=== PATIENT | female | born 1930 | race Caucasian/White ===

== ENCOUNTER 2020-02-04 10:48 | Inpatient (IN) | payer MEDICARE, OTHER ==
[~2020-02-04] VITALS: Ht 167.6 cm; Wt 57.4 kg
[~2020-02-04 10:48] MED LIST: ANAS1TAB7 PO; LEVO88TA36 PO; LISI40TA11 PO; PROP60CA34 PO; SIMV-13 PO
[2020-02-04] MEDS ORDERED: cefTRIAXone 1GM/50ML D5W 50 ML IV ONE (11:45)
[2020-02-04] MEDS ORDERED: SODIUM CHLORIDE 0.9% 1,000 ML IV ONE (11:45)
[2020-02-04 12:43] LABS: Basophils # (auto) 0 10 ^3/uL (0-0.2); Basophils % (auto) 0.4 % (0.0-2.0); Hemoglobin 11.1 g/dL (12.2-16.2); Monocytes # (auto) 0.7 10 ^3/uL (0-1.3); Neutrophils # (auto) 8.4 10 ^3/uL (1.6-8.6)
[2020-02-04 12:46] LABS: Eosinophils # (auto) 0.2 10 ^3/uL (0-0.8); Eosinophils % (auto) 1.7 % (0.0-7.0); Hematocrit 33.5 % (36.0-46.0); Lymphocytes # (auto) 0.9 10 ^3/uL (0.4-5.4); Lymphocytes % (auto) 8.4 % (10.0-50.0); Mean Corpuscular Hemoglobin 27.5 pg (28.0-32.0); Mean Corpuscular Hgb Conc. 33.1 g/dL (32.0-36.0); Mean Corpuscular Volume 83.3 fL (80.0-100.0); Monocytes % (auto) 7.1 % (0.0-12.0); Neutrophils % (auto) 82.4 % (37.0-80.0); Platelet Count (auto) 481 10^3/uL (140-450); Red Blood Cells 4.02 10^6/uL (4.0-5.20); Red Cell Distribution Width 15.2 % (11.8-14.3); White Blood Cell 10.2 10^3/uL (4.4-10.8)
[2020-02-04 12:59] LABS: INR 1.02 (0.9-1.15); Partial Thromboplastin Time 29.3 sec (23.0-31.2)
[2020-02-04 13:32] LABS: Albumin 3.3 g/dL (3.4-5.0); Anion Gap 6 (5-15); Blood Urea Nitrogen 15 mg/dL (7-18); Carbon Dioxide 27 mmol/L (21-32); Chloride 105 mmol/L (98-107); Glucose 80 mg/dL (74-106); Potassium 3.6 mmol/L (3.5-5.1); Sodium 138 mmol/L (136-145)
[2020-02-04 13:39] LABS: Alanine Aminotransferase 12 U/L (13-56); Alkaline Phosphatase 89 U/L (45-117); Aspartate Aminotransferase 12 U/L (15-37); BUN/Creatinine Ratio 26.3; Bilirubin, Total 0.6 mg/dL (0.2-1.0); GFR African American 129 mL/min; GFR Non-African American 107 mL/min; Total Protein 7.8 g/dL (6.4-8.2)
[2020-02-04] MEDS ORDERED: MORPHINE SULF INJ 2 MG/ML SYRINGE 1ML IV PRN (17:45)
[2020-02-04] MEDS ORDERED: NITROGLYCERIN 0.4 MG SL TAB SL PRN (17:45)
[2020-02-04] MEDS ORDERED: ONDANSETRON HCL 4 MG/2 ML VIAL IV PRN (17:45)
[2020-02-04] MEDS ORDERED: PIPERACILLIN-TAZOB 3.375GM 100 ML IV SCH (18:00)
[2020-02-04] MEDS: SODIUM CHLORIDE 0.9% 1,000 ML IV SCH (19:35)
[2020-02-04] MEDS: PIPERACILLIN-TAZOB 2.25GM 50 ML IV SCH (19:35)
--- NOTE | 2020-02-04 20:26 | NUR ---
ADMIT TO TELE FROM ER Assumed care of patient who is alert and oriented. Currently RA with no S/S of distress or SOB noted at this time. Tele monitor #56 and is running Normal sinus @70bpm.Skin is intact no open wounds noted at this time. Patient is oriented to hospital policies and the room. POC discussed in detail with patient, all questions answered and patient verbalized understanding. Bed is locked, in lowest position, side rails up x2. Call light within reach and patient is encouraged to call for assistance as needed. Will continue to monitor PRN/Q1hr.
[2020-02-04 21:00] VITALS: BP 163/79
[2020-02-04] MEDS: ATORVASTATIN 20 MG TAB PO SCH (21:47)
[2020-02-04] MEDS: LINEZOLID 600MG TABLET PO SCH (22:27)
[2020-02-05] MEDS: PIPERACILLIN-TAZOB 2.25GM 50 ML IV SCH ×5 (00:04→23:43)
[2020-02-05 01:14] VITALS: BP 163/79
[2020-02-05] MEDS ORDERED: FERR-20 PO (01:36)
[2020-02-05] MEDS ORDERED: METO-169 PO (01:36)
[2020-02-05] MEDS ORDERED: LORA-622 PO (01:36)
[2020-02-05] MEDS ORDERED: SIMV-13 PO (01:36)
[2020-02-05] MEDS ORDERED: INFLUENZA QUAD 2020-2021 0.5 ML SYRG IM ONE (01:45)
[2020-02-05] MEDS: ACETAMINOPHEN 325 MG TAB PO PRN ×2 (04:15→18:32)
[2020-02-05 04:28] LABS: Urine Bacteria NONE SEEN /hpf (None Seen); Urine Blood Negative /uL (Negative); Urine Specific Gravity 1.014 (1.001-1.035); Urine WBC 2 /hpf (0 - 5)
[2020-02-05 05:00] VITALS: BP 155/79
[2020-02-05] MEDS: LEVOTHYROXINE SODIUM 88 MCG TAB PO SCH (06:36)
[2020-02-05 07:11] LABS: Basophils # (auto) 0.1 10 ^3/uL (0-0.2); Basophils % (auto) 0.6 % (0.0-2.0); Eosinophils # (auto) 0.2 10 ^3/uL (0-0.8); Eosinophils % (auto) 2.1 % (0.0-7.0); Hematocrit 29.5 % (36.0-46.0); Hemoglobin 9.9 g/dL (12.2-16.2); Lymphocytes # (auto) 0.8 10 ^3/uL (0.4-5.4); Lymphocytes % (auto) 10.2 % (10.0-50.0); Mean Corpuscular Hemoglobin 27.7 pg (28.0-32.0); Mean Corpuscular Hgb Conc. 33.7 g/dL (32.0-36.0); Mean Corpuscular Volume 82.2 fL (80.0-100.0); Monocytes # (auto) 0.7 10 ^3/uL (0-1.3); Monocytes % (auto) 8.8 % (0.0-12.0); Neutrophils # (auto) 6.5 10 ^3/uL (1.6-8.6); Neutrophils % (auto) 78.3 % (37.0-80.0); Nucleated Red Blood Cells % 0.1 %; Platelet Count (auto) 424 10^3/uL (140-450); Red Blood Cells 3.59 10^6/uL (4.0-5.20); Red Cell Distribution Width 14.9 % (11.8-14.3); White Blood Cell 8.3 10^3/uL (4.4-10.8)
--- NOTE | 2020-02-05 07:19 | NUR ---
CARE ENDORSED TO DAY SHIFT RN
[2020-02-05 07:24] LABS: Albumin 2.8 g/dL (3.4-5.0); Calcium 9.1 mg/dL (8.5-10.1); Potassium 3.5 mmol/L (3.5-5.1)
[2020-02-05 07:34] LABS: BUN/Creatinine Ratio 25.5; Bilirubin, Total 0.9 mg/dL (0.2-1.0); Total Protein 6.5 g/dL (6.4-8.2)
[2020-02-05 09:14] VITALS: BP 153/73
[2020-02-05] MEDS ORDERED: PROPRANOLOL HCL 20 MG TAB PO SCH (10:00)
[2020-02-05] MEDS: ANASTRAZOLE 1 MG PO SCH (10:00)
[2020-02-05] MEDS ORDERED: LISINOPRIL 20 MG TAB PO SCH (10:00)
--- NOTE | 2020-02-05 10:30 | NUR ---
WOUND CARE NOTE: Wound care in to see patient per wound care request regarding "Rt shoulder Cellulitis". Bedside nurse took photograph of patient's wound upon admission for reference. Patient is 89 years old female with admitting diagnosis of Rt Shoulder Cellulitis. Patient is resting in Rm. 277A. Patient is awake, alert and oriented. Patient is in no stated pain at this time however reports that Rt shoulder is painful to touch. Patient reported that she's ambulatory without the use of any assistive device. She's self turning and repositioning. Her Jose score is 21. Noted patient's R anterior shoulder /upper chest , just below collar bone is 9cm linear scar from previous surgical incision. Proximal to it is 3x3 cm soft lesion open and draining at center. Wound and surrounding skin down to patient's Rt arm is erythremic. Moderate amount of serous drainage noted,no odor noted. Patient has history of Rt shoulder surgery in middle of December. Patient reported that two weeks after surgery, stapled was taken out by surgeon. She continued further that after removal of joe that's when she noted, redness, drainage and pain to her Rt shoulder. Cleansed patent's R shoulder wound with NS, took specimen for wound culture and sent to lab for processing. Covered wound with dry sterile dressing (abd pad and secure with paper tape. Patient turned to her L side to visualize sacral, back and other bony prominences, no other wound or pressure injury noted. Patient tolerated well, repositioned for comfort , redistributed pressure points with pillows. Bed in low position, call belle within reach,a ll safety precautions in placed. Patient has an active orthopedic consult. RECOMMENDATION: Nursing to continue with Daily/PRN dressing change to Rt shoulder wound per MD order, redistribute pressure points with pillows, continue monitoring by wound care while patient is hospitalized. Addendum: 02/05/20 at 1148 by Jenae Stewart RN Amended: Links added.
[2020-02-05] MEDS: LINEZOLID 600MG TABLET PO SCH ×2 (11:56→21:35)
[2020-02-05 12:55] VITALS: BP 164/77
--- NOTE | 2020-02-05 14:43 | NUR ---
ASSUMED CARE OF PATIENT. NO DISTRESS NOTED.WILL CONTINUE TO MONITOR.
[2020-02-05 16:34] VITALS: BP 151/72
[2020-02-05] MEDS: SODIUM CHLORIDE 0.9% 1,000 ML IV SCH (17:50)
--- NOTE | 2020-02-05 19:02 | NUR ---
ENDORSED CARE TO NIGHT RN
--- NOTE | 2020-02-05 19:15 | NUR ---
OPENING SHIFT NOTE Assumed care of patient who is alert and oriented. Currently RA with no S/S of distress or SOB noted at this time. POC discussed in detail with patient, all questions answered and patient verbalized understanding. Bed is locked, in lowest position, side rails up x2. Call light within reach and patient is encouraged to call for assistance as needed. Will continue to monitor PRN/Q1hr.
[2020-02-05] MEDS: ATORVASTATIN 20 MG TAB PO SCH (21:35)
[2020-02-05 22:00] VITALS: BP 153/73
--- NOTE | 2020-02-05 23:00 | NUR ---
IV INSERTION IV access obtained, via clean sterile technique by inserting 22 gauge catheter at after 1 attempt. IV secured properly. No trauma to site. Patient tolerated well.
[2020-02-06 05:00] VITALS: BP 158/92
[2020-02-06] MEDS: PIPERACILLIN-TAZOB 2.25GM 50 ML IV SCH ×2 (05:54→11:50)
[2020-02-06 06:06] LABS: Basophils # (auto) 0 10 ^3/uL (0-0.2); Basophils % (auto) 0.7 % (0.0-2.0); Eosinophils # (auto) 0.2 10 ^3/uL (0-0.8); Eosinophils % (auto) 3.1 % (0.0-7.0); Hematocrit 33.5 % (36.0-46.0); Hemoglobin 11.2 g/dL (12.2-16.2); Lymphocytes # (auto) 0.7 10 ^3/uL (0.4-5.4); Lymphocytes % (auto) 9.6 % (10.0-50.0); Mean Corpuscular Hemoglobin 27.6 pg (28.0-32.0); Mean Corpuscular Hgb Conc. 33.5 g/dL (32.0-36.0); Mean Corpuscular Volume 82.5 fL (80.0-100.0); Monocytes # (auto) 0.6 10 ^3/uL (0-1.3); Monocytes % (auto) 8.3 % (0.0-12.0); Neutrophils # (auto) 5.5 10 ^3/uL (1.6-8.6); Neutrophils % (auto) 78.3 % (37.0-80.0); Platelet Count (auto) 409 10^3/uL (140-450); Red Blood Cells 4.06 10^6/uL (4.0-5.20); Red Cell Distribution Width 14.7 % (11.8-14.3); White Blood Cell 7.1 10^3/uL (4.4-10.8)
[2020-02-06 06:25] LABS: Potassium 3.7 mmol/L (3.5-5.1)
[2020-02-06] MEDS: LEVOTHYROXINE SODIUM 88 MCG TAB PO SCH (06:26)
[2020-02-06 06:31] LABS: Albumin 2.9 g/dL (3.4-5.0); Calcium 9.4 mg/dL (8.5-10.1); Total Protein 7.1 g/dL (6.4-8.2)
--- NOTE | 2020-02-06 07:13 | NUR ---
OPENING SHIFT NOTE Assumed care of patient from shift leader RN. Patient is alert and oriented x4, no signs of distress noted, she denies pain. Patient was updated on the plan of care and verbalized understanding. Bed is locked, in the lowest position, side rails are up x2 and call light is in reach. She was encouraged to call for assistance as needed.
--- NOTE | 2020-02-06 07:28 | NUR ---
CARE ENDORSED TO DAY SHIFT RN
--- NOTE | 2020-02-06 08:43 | NUR ---
PROCEDURE CANCELLED Per Tasha Patricio NP for MD Johnston. Patient had procedure on right shoulder at [facility]. CHIP MUCKER will put in transfer to [facility], If the patient is not able to be accepted then Vickie will be able to do procedure tomorrow if they are able to obtain the proper parts. Patient was updated on the plan of care.
[2020-02-06 08:44] VITALS: BP 158/73
--- NOTE | 2020-02-06 09:11 | NUR ---
I faxed transfer order to [facility].
--- NOTE | 2020-02-06 09:19 | NUR ---
CALL FROM JAMEY BERNAL Rama would be accepting the patient at [facility]. Will inform MD CHAU.
[2020-02-06] MEDS ORDERED: METOPROLOL SUCCINATE XL 50 MG TAB PO SCH (10:00)
--- NOTE | 2020-02-06 10:13 | NUR ---
Called [facility] spoke with louise Gonzalez who advises pt has been assigned to Room# 207-A and advised that report must be called into [phone] before patient transfers.
[2020-02-06] MEDS: LINEZOLID 600MG TABLET PO SCH (10:38)
[2020-02-06] MEDS: ANASTRAZOLE 1 MG PO SCH (10:38)
--- NOTE | 2020-02-06 10:45 | NUR ---
UPDATED KANDI on ultrasound results, New orders for patient to be transferred to [facility], he will be the accepting physician, Will call neonatal social worker to set up the transportation.
--- NOTE | 2020-02-06 11:37 | NUR ---
Called [facility] spoke with Yumiko ordered ALS transport to be today at 1300 patient is going to [facility] Room# 270 A
--- NOTE | 2020-02-06 12:15 | NUR ---
CALLED [facility] TO GIVE REPORT, on hold for 10 minutes, will try again later.
[2020-02-06 12:46] VITALS: BP 144/67
[2020-02-06 13:00] VITALS: BP 144/67
--- NOTE | 2020-02-06 13:18 | NUR ---
discharge Discharge instructions given as ordered. Patient being transferred to [facility], report was given to Maritza RN at 1235. Encourage to follow up with PMD as instructed. All questions and concerns addressed. Patient verbalized understanding. Medication reconciliation form completed and copy given to patient. Home medications held in Pharmacy returned to patient. Patient transferred with IV in place, Telemetry unit returned to ICU. Patient taken to Ambulance via EMS via gurney with all personal belongings. No distress noted at time of departure.
--- NOTE | 2020-02-06 15:09 | NUR ---
Assessment The patient is an 89-year-old female, who is alert and oriented. Patient cognitive abilities are intact. Patient stated that prior to admission to [facility], she can do all ADLs and ambulate independently. Patient stated that she is retired and receives social security benefits as income. Patient stated that she has daughter (Melissa [phone]) and son (Magda [phone]) as her support system. Patient stated that she has a completed Advance Directive and POA on file at [facility]. Discharge planning: Due to patient cellulitis patient may need home health for wound care or home IV antibiotics, [facility] block and case maker will follow patient for any discharge needs. Addendum: 02/06/20 at 1510 by TOO MONTEJO Amended: Links added.
== END 2020-02-06 13:15 | disposition short-term general hospital (02) | DRG 560 ==
LOC: ER 10:48 → TELE 10:49 → TELE-WESTW 20:26
PROVIDERS: ADMIT Internal Medicine; ATTEND Internal Medicine
DX: T84.59XA Infection and inflammatory reaction due to other internal joint prosthesis, initial encounter (principal); L03.113 Cellulitis of right upper limb; E44.1 Mild protein-calorie malnutrition; L02.413 Cutaneous abscess of right upper limb; E88.09 Other disorders of plasma-protein metabolism, not elsewhere classified; D64.9 Anemia, unspecified; I10 Essential (primary) hypertension; I70.0 Atherosclerosis of aorta; Z96.611 Presence of right artificial shoulder joint; E78.5 Hyperlipidemia, unspecified; Z85.3 Personal history of malignant neoplasm of breast; Z90.710 Acquired absence of both cervix and uterus; Z82.49 Family history of ischemic heart disease and other diseases of the circulatory system; Z88.2 Allergy status to sulfonamides
CPT/HCPCS: 36415; 71045; 73200; 76881; 80053; 81001; 83605; 84484; 85025; 85610; 85730; 87040; 87077; 87186; 87205; 93005; G0378; J0696; J2543